=== PATIENT | male | born 1995 | race Caucasian/White ===

== ENCOUNTER 2017-06-13 09:10 | Emergency (ER) | payer OTHER ==
[~2017-06-13] VITALS: Ht 180.3 cm; Wt 72.6 kg
[~2017-06-13 09:10] MED LIST: HYDR-385 PO; HYDR-4225 PO; LORA-1455 PO; OMEG500C7 PO; ONDA4TAB PO; PANT40TA65 PO; RANI300C8 PO
--- NOTE | 2017-06-13 09:23 | ER Report ---
History and Physical Time Seen By MD: 09:22 HPI/ROS CC: Suicidal ideation HPI: 21-year-old male with a past medical history of suicidal ideations and depression. Texted his therapist, Arpita, this morning stating that he wanted to use his 9 mm gun to kill himself. She then called him and discussed his options of either of them coming to the emergency department voluntarily she would call 911. He opted to come voluntarily. Emergency department he does have a plan of using his 9 mm firearm to kill himself. He is depressed. He broke up with his girlfriend approximately 12-13 hours ago. ROS: 12 point review of systems essentially negative other than what's mentioned in history of present illness. NURSES AND OLD MEDICAL RECORDS: Reviewed PMH: Reviewed SURGICAL HX: Reviewed FAMILY HX: Noncontributory SOCIAL HX: Patient denies illicit drugs. He lives at home. VITAL SIGNS: Reviewed CONSTITUTIONAL: 21-year-old male who is depressed PHYSICAL EXAM: HEENT: Pupils equal round reactive to light and accommodate, EOMI, tympanic membranes pearly white umbo present with good light reflex. Lips dry mucous membranes moist gums nonbleeding uvula midline and rises equally with phonation, oropharynx noninjected, teeth intact. NECK: Neck supple, thyroid not appreciated, anterior and posterior cervical lymphadenopathy not appreciated. Trachea midline and rises equally with phonation. CARDIAC: S1-S2 regular rate rhythm no murmurs rubs or gallops. LUNGS: Lungs clear bilaterally posteriorly in all pond. Good air movement. ABDOMEN: Abdomen soft, nondistended, bowel sounds active in all 4 quadrants, no bruits noted, no CVA tenderness. MUSCULOSKELETAL: Strength 5 out of 5 x 4 extremities, no deformities noted. NEUROLOGIC: Patient alert and oriented by 3 PSYCH: Patient is depressed with suicidal ideations of using a 9 mm firearm to kill himself. Patient does have insight. Allergies: Coded Allergies: No Known Drug Allergies (Unverified , 07/07/16) Home Meds Discontinued Reported Medications Pantoprazole Sodium (PANTOPRAZOLE SODIUM) 40 Mg Tablet.dr, 40 MG PO QDAY, TAB.SR 03/25/17 Discontinued Scripts Ranitidine Hcl (RANITIDINE HCL) 300 Mg Capsule, 1 CAP PO QHS, #60 CAPSULE 3 Refills Prov:GIAN WILLARD MD 03/25/17 Hx Smoking: Yes (2 YRS 4 CIG DAILY) Smoking Status: Former Smoker Hx Substance Use Disorder: No Hx Alcohol Use: No (occ) Constitutional Vital Sign - Last 24 Hours 06/13/17 09:19 Temp 98.4 Pulse 70 Resp 20 B/P (MAP) 140/88 Pulse Ox 93 O2 Delivery Room Air Medical Decision Making Data Points Result Diagram: 06/13/1792806/13/17928 Laboratory Hematology Test 06/13/17 09:25 06/13/17 09:29 Urine Color Straw Urine Clarity Clear Urine pH 5.0 pH (4.8-9.5) Urine Specific [place] 1.006 Urine Protein Negative mg/dL (NEGATIVE) Urine Glucose (UA) Negative mg/dL (NEGATIVE) Urine Ketones 20 mg/dL (NEGATIVE) Urine Blood Negative (NEGATIVE) Urine Nitrite Negative (NEGATIVE) Urine Bilirubin Negative (NEGATIVE) Urine Urobilinogen Negative mg/dL (0.2-1.9) Urine Leukocyte Esterase Negative (NEGATIVE) Urine RBC None /HPF (0-2/HPF) Urine WBC <1 /HPF (0-5/HPF) Urine Squamous Epithelial Cells Few /LPF (</=FEW) Urine Bacteria Negative /HPF (NONE-FEW) Urine Mucus Few /HPF (NONE-FEW) Urine Opiates Screen Negative Urine Barbiturates Screen Negative Ur Tricyclic Antidepressants Screen Negative Urine Phencyclidine Screen Negative Urine Amphetamines Screen Negative Urine Benzodiazepines Screen Negative Urine Cocaine Screen Negative Urine Cannabinoids Screen Positive Red Blood Count 6.17 M/uL (4.00-5.60) Mean Corpuscular Volume 85.7 fL (80.0-96.0) Mean Corpuscular Hemoglobin 29.8 pg (26.0-33.0) Mean Corpuscular Hemoglobin Concent 34.7 g/dL (32.0-36.0) Red Cell Distribution Width 13.0 % (11.5-14.5) Mean Platelet Volume 7.7 fL (7.2-11.1) Neutrophils (%) (Auto) 72.2 % (39.4-72.5) Lymphocytes (%) (Auto) 18.5 % (17.6-49.6) Monocytes (%) (Auto) 8.2 % (4.1-12.4) Eosinophils (%) (Auto) 0.7 % (0.4-6.7) Basophils (%) (Auto) 0.4 % (0.3-1.4) Nucleated RBC Relative Count (auto) 0.1 /100WBC Neutrophils # (Auto) 5.9 K/uL (2.0-7.4) Lymphocytes # (Auto) 1.5 K/uL (1.3-3.6) Monocytes # (Auto) 0.7 K/uL (0.3-1.0) Eosinophils # (Auto) 0.1 K/uL (0.0-0.5) Basophils # (Auto) 0.0 K/uL (0.0-0.1) Nucleated RBC Absolute Count (auto) 0.01 K/uL Sodium Level 137 mmol/L (137-145) Potassium Level 4.0 mmol/L (3.5-5.0) Chloride Level 101 mmol/L (98-107) Carbon Dioxide Level 25 mmol/L (22-30) Blood Urea Nitrogen 10 mg/dl (9-21) Creatinine 0.90 mg/dl (0.66-1.25) Glomerular Filtration Rate Calc > 60.0 Random Glucose 83 mg/dl (75-110) Calcium Level 9.7 mg/dl (8.4-10.2) Magnesium Level 1.8 mg/dl (1.7-2.2) Total Bilirubin 1.3 mg/dl (0.2-1.3) Aspartate Amino Transf (AST/SGOT) 26 U/L (0-35) Alanine Aminotransferase (ALT/SGPT) 37 U/L (0-56) Alkaline Phosphatase 94 U/L (0-126) Total Protein 7.6 gm/dl (6.3-8.2) Albumin 4.3 g/dl (3.5-5.0) Salicylates Level < 10 mg/L Salicylate Last Dose Date ? Acetaminophen Level < 10 ug/ml Serum Alcohol < 10 mg/dl Chemistry Test 06/13/17 09:25 06/13/17 09:29 Urine Color Straw Urine Clarity Clear Urine pH 5.0 pH (4.8-9.5) Urine Specific [place] 1.006 Urine Protein Negative mg/dL (NEGATIVE) Urine Glucose (UA) Negative mg/dL (NEGATIVE) Urine Ketones 20 mg/dL (NEGATIVE) Urine Blood Negative (NEGATIVE) Urine Nitrite Negative (NEGATIVE) Urine Bilirubin Negative (NEGATIVE) Urine Urobilinogen Negative mg/dL (0.2-1.9) Urine Leukocyte Esterase Negative (NEGATIVE) Urine RBC None /HPF (0-2/HPF) Urine WBC <1 /HPF (0-5/HPF) Urine Squamous Epithelial Cells Few /LPF (</=FEW) Urine Bacteria Negative /HPF (NONE-FEW) Urine Mucus Few /HPF (NONE-FEW) Urine Opiates Screen Negative Urine Barbiturates Screen Negative Ur Tricyclic Antidepressants Screen Negative Urine Phencyclidine Screen Negative Urine Amphetamines Screen Negative Urine Benzodiazepines Screen Negative Urine Cocaine Screen Negative Urine Cannabinoids Screen Positive White Blood Count 8.2 k/uL (4.5-11.0) Red Blood Count 6.17 M/uL (4.00-5.60) Hemoglobin 18.4 g/dL (14.0-18.0) Hematocrit 52.9 % (42.0-52.0) Mean Corpuscular Volume 85.7 fL (80.0-96.0) Mean Corpuscular Hemoglobin 29.8 pg (26.0-33.0) Mean Corpuscular Hemoglobin Concent 34.7 g/dL (32.0-36.0) Red Cell Distribution Width 13.0 % (11.5-14.5) Platelet Count 260 K/uL (150-450) Mean Platelet Volume 7.7 fL (7.2-11.1) Neutrophils (%) (Auto) 72.2 % (39.4-72.5) Lymphocytes (%) (Auto) 18.5 % (17.6-49.6) Monocytes (%) (Auto) 8.2 % (4.1-12.4) Eosinophils (%) (Auto) 0.7 % (0.4-6.7) Basophils (%) (Auto) 0.4 % (0.3-1.4) Nucleated RBC Relative Count (auto) 0.1 /100WBC Neutrophils # (Auto) 5.9 K/uL (2.0-7.4) Lymphocytes # (Auto) 1.5 K/uL (1.3-3.6) Monocytes # (Auto) 0.7 K/uL (0.3-1.0) Eosinophils # (Auto) 0.1 K/uL (0.0-0.5) Basophils # (Auto) 0.0 K/uL (0.0-0.1) Nucleated RBC Absolute Count (auto) 0.01 K/uL Glomerular Filtration Rate Calc > 60.0 Calcium Level 9.7 mg/dl (8.4-10.2) Magnesium Level 1.8 mg/dl (1.7-2.2) Total Bilirubin 1.3 mg/dl (0.2-1.3) Aspartate Amino Transf (AST/SGOT) 26 U/L (0-35) Alanine Aminotransferase (ALT/SGPT) 37 U/L (0-56) Alkaline Phosphatase 94 U/L (0-126) Total Protein 7.6 gm/dl (6.3-8.2) Albumin 4.3 g/dl (3.5-5.0) Salicylates Level < 10 mg/L Salicylate Last Dose Date ? Acetaminophen Level < 10 ug/ml Serum Alcohol < 10 mg/dl Toxicology Test 06/13/17 09:25 06/13/17 09:29 Urine Opiates Screen Negative Urine Barbiturates Screen Negative Ur Tricyclic Antidepressants Screen Negative Urine Phencyclidine Screen Negative Urine Amphetamines Screen Negative Urine Benzodiazepines Screen Negative Urine Cocaine Screen Negative Urine Cannabinoids Screen Positive Salicylates Level < 10 mg/L Salicylate Last Dose Date ? Acetaminophen Level < 10 ug/ml Serum Alcohol < 10 mg/dl Urinalysis Test 06/13/17 09:25 Urine Color Straw Urine Clarity Clear Urine pH 5.0 pH (4.8-9.5) Urine Specific [place] 1.006 Urine Protein Negative mg/dL (NEGATIVE) Urine Glucose (UA) Negative mg/dL (NEGATIVE) Urine Ketones 20 mg/dL (NEGATIVE) Urine Blood Negative (NEGATIVE) Urine Nitrite Negative (NEGATIVE) Urine Bilirubin Negative (NEGATIVE) Urine Urobilinogen Negative mg/dL (0.2-1.9) Urine Leukocyte Esterase Negative (NEGATIVE) Urine RBC None /HPF (0-2/HPF) Urine WBC <1 /HPF (0-5/HPF) Urine Squamous Epithelial Cells Few /LPF (</=FEW) Urine Bacteria Negative /HPF (NONE-FEW) Urine Mucus Few /HPF (NONE-FEW) ED Course/Re-evaluation ED Course Is within normal limits. Patient with a suicidal ideation. Patient is depressed. Patient will be admitted to [facility]. I discussed the patient's plan with the therapist. Patient is voluntary at this time. Decision to Disposition Date: Jun 13, 2017 Decision to Disposition Time: 11:02 Depart Departure Latest Vital Signs Vital Signs Date Time Temp Pulse Resp B/P (MAP) Pulse Ox O2 Delivery O2 Flow Rate FiO2 06/13/17 09:19 98.4 70 20 140/88 93 Room Air Impression: Primary Impression: Suicidal ideations Condition: Condition Unchanged Disposition: Admitted from ER New Scripts No Active Prescriptions or Reported Meds GARRICK HUANG MD Jun 13, 2017 09:23
[2017-06-13 09:50] LABS: PLATELET COUNT, AUTOMATED 260 K/uL (150-450)
[2017-06-13 11:11] VITALS: BP 135/88
== END 2017-06-13 11:18 | disposition other institution (70) ==
LOC: ER 09:23
DX: R45.851 Suicidal ideations (principal)
CPT/HCPCS: 36415; 80305; 80320; 80329; 81001; 82040; 82247; 82310; 82374; 82435; 82565; 82947; 83735; 84075; 84132; 84155; 84295; 84443; 84450; 84460; 84520; 85025; 99285

== ENCOUNTER 2017-06-13 11:03 | Inpatient (IN) | payer OTHER ==
[~2017-06-13] VITALS: Ht 180.3 cm; Wt 76.2 kg
[2017-06-13 11:25] VITALS: BP 132/90
[2017-06-13] MEDS ORDERED: MAG HYD/AL HYD/SIMETH 30ML UDC PO PRN (11:55)
[2017-06-13] MEDS ORDERED: ACETAMINOPHEN 325 MG TAB PO PRN (11:55)
[2017-06-13] MEDS ORDERED: diphenhydrAMINE 50 MG/ML VIAL IVP PRN (18:10)
[2017-06-13] MEDS ORDERED: OLANZapine 5 MG TAB PO PRN (18:10)
[2017-06-13] MEDS ORDERED: OLANZapine 10 MG VIAL IM ONLY PRN (18:10)
[2017-06-13] MEDS ORDERED: LORazepam 1 MG TAB PO PRN (18:10)
[2017-06-13] MEDS ORDERED: diphenhydrAMINE 25 MG CAP PO PRN (18:10)
[2017-06-13] MEDS ORDERED: WATER STERILE 10 ML VIAL IM ONLY PRN (18:10)
[2017-06-13] MEDS ORDERED: LORazepam 2 MG/ML VIAL IVP PRN (18:10)
[2017-06-13 19:34] VITALS: BP 128/89
[2017-06-14 06:28] VITALS: BP 118/79
[2017-06-14] MEDS: MULTIVITAMINS PO SCH (08:24)
[2017-06-14] MEDS: SERTRALINE HCL 50 MG TAB PO SCH (10:25)
[2017-06-14] MEDS ORDERED: MELATONIN 3 MG TAB PO SCH (21:00)
[2017-06-15 06:00] VITALS: BP 133/89
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
[2017-06-15] MEDS: SERTRALINE HCL 50 MG TAB PO SCH (08:21)
[2017-06-15] MEDS: MULTIVITAMINS PO SCH (08:21)
[2017-06-15] MEDS ORDERED: MELA3TAB31 PO (13:18)
[2017-06-15] MEDS ORDERED: SERT-1 PO (13:19)
[2017-06-15] MEDS ORDERED: MULT-1335 PO (13:19)
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
== END 2017-06-15 14:30 | disposition home or self-care (01) | DRG 883 ==
LOC: BHS 11:03
PROVIDERS: ADMIT Registered Nurse Psychiatric/Mental Health, Adult; ATTEND Registered Nurse Psychiatric/Mental Health, Adult
DX: F60.9 Personality disorder, unspecified (principal); R45.851 Suicidal ideations; F41.9 Anxiety disorder, unspecified; F60.81 Narcissistic personality disorder; F12.10 Cannabis abuse, uncomplicated; K21.9 Gastro-esophageal reflux disease without esophagitis; Z91.5 Personal history of self-harm; Z63.0 Problems in relationship with spouse or partner
CPT/HCPCS: A4216; J1200; J2060; J3490